=== PATIENT | female | born 1955 | race Caucasian/White ===

== ENCOUNTER 2020-05-09 16:32 | Emergency (ER) | payer MEDICAID ==
[~2020-05-09] VITALS: Ht 160 cm; Wt 87.3 kg
[~2020-05-09 16:32] MED LIST: ATOR40TA PO; BENA10TA75 PO; CIPR-230 PO; ESCI20TA45 PO; METH-360 PO; METR-159 PO; ONDA4TAB12 PO; OXYB15TA19 PO; PANT-47 PO
[2020-05-09 16:36] VITALS: BP 123/54
[2020-05-09] MEDS ORDERED: orphenadrine citrate 60mg/2ml inj. IM ONE (17:30)
[2020-05-09] MEDS ORDERED: ketorolac tromethamine 15mg/ml inj. IM ONE (17:30)
[2020-05-09] MEDS ORDERED: ORPH100T2 PO (17:45)
== END 2020-05-09 18:19 | disposition home or self-care (01) ==
LOC: ER 16:33
DX: M54.42 Lumbago with sciatica, left side (principal); M54.41 Lumbago with sciatica, right side; G89.29 Other chronic pain; Z60.2 Problems related to living alone; Z79.899 Other long term (current) drug therapy; Z88.1 Allergy status to other antibiotic agents; Z88.6 Allergy status to analgesic agent
CPT/HCPCS: 96372; 99284; J1885; J2360

== ENCOUNTER 2021-01-06 12:39 | Inpatient (IN) | payer MEDICAID ==
[~2021-01-06] VITALS: Ht 160 cm; Wt 86.4 kg
[~2021-01-06 12:39] MED LIST changes: +CIPR-202 PO; -CIPR-230 PO; +ESCI20TA39 PO; -ESCI20TA45 PO; +ORPH100T2 PO
[2021-01-06] MEDS ORDERED: normal saline 1000ML IV soln IVB ONE (12:45)
[2021-01-06 13:02] LABS: BASOPHILS # (AUTO) 0.1 X10'3 (0-0.2); BASOPHILS % (AUTO) 0.5 % (0-1); EOSINOPHILS % (AUTO) 0 % (0-6); HEMOGLOBIN 8.5 g/dl (12.0-16.0); LYMPHOCYTES # (AUTO) 0.7 X10'3 (1.1-4.8); LYMPHOCYTES % (AUTO) 6.4 % (21-51); MEAN CORPUSCULAR HEMOGLOBIN 20.8 PG (27.0-31.0); MEAN CORPUSCULAR HGB CONC 29.3 g/dL (33.0-36.5); MEAN PLATELET VOLUME 8.3 FL (7.4-10.4); MONOCYTES # (AUTO) 0.7 X10'3 (0-0.9); MONOCYTES % (AUTO) 6.2 % (2-12); NEUTROPHILS # (AUTO) 9.6 X10'3 (1.8-7.7); NEUTROPHILS % (AUTO) 86.9 % (42-75); PLATELET COUNT 294 X10'3 (140-440); RED BLOOD COUNT 4.09 X10'6 (4.20-5.60); RED CELL DISTRIBUTION WIDTH 19.9 % (11.5-14.5); WHITE BLOOD COUNT 11.1 X10'3 (4.5-11.0)
[2021-01-06 13:14] LABS: ALANINE AMINOTRANSFERASE 30 U/L (12-78); ALBUMIN 3.8 G/DL (3.4-5.0); ALBUMIN/GLOBULIN RATIO 1.2 (1.1-1.5); ALKALINE PHOSPHATASE 80 IU/L (46-116); ANION GAP 8 (8-16); ASPARTATE AMINO TRANSFERASE 36 U/L (10-37); BILIRUBIN,TOTAL 0.4 MG/DL (0.1-1.0); BLOOD UREA NITROGEN 14 MG/DL (7-18); BUN/CREATININE RATIO 21.2 (6.6-38.0); CALCIUM 9.2 MG/DL (8.5-10.1); CHLORIDE 104 MMOL/L (99-107); CREATININE 0.66 MG/DL (0.40-0.90); GLUCOSE 144 MG/DL (70-104); POTASSIUM 4.1 MMOL/L (3.5-5.1); SODIUM 139 MMOL/L (135-145); TOTAL CARBON DIOXIDE 27.4 MMOL/L (24-32); TOTAL PROTEIN 6.9 G/DL (6.4-8.2); eGFR 90 ML/MIN
[2021-01-06 13:25] LABS: CREATINE KINASE 1135 U/L (26-192)
[2021-01-06 13:47] LABS: ANISOCYTOSIS 2+; HYPOCHROMASIA 1+; MICROCYTOSIS 1+; PLATELET ESTIMATE NORMAL
[2021-01-06 13:48] LABS: POIKILOCYTOSIS FEW; POLYCHROMASIA FEW
--- NOTE | 2021-01-06 14:12 | NUR ---
Maureen (coordinates her care) [phone] Addendum: 01/06/21 at 1524 by MANUEL Maureen is her independent home and family living professor. Sometimes gives her rides, helps with groceries etc. This is only Friday-Friday and they usually help her with 2 appointments a week.
[2021-01-06 14:27] LABS: CLARITY,URINE CLEAR (Clear); COLOR,URINE YELLOW (Yellow); GLUCOSE, URINE NEGATIVE (Neg); KETONES,URINE TRACE mg/dl (Neg); LEUKOCYTE ESTERASE ,URINE NEGATIVE (Neg); NITRITES, URINE NEGATIVE (Neg); OCCULT BLOOD,URINE NEGATIVE (Neg); PH,URINE 5.5 (4.8-8.0); PROTEIN,URINE NEGATIVE (Neg); UROBILINOGEN,URINE 0.2 E.U/dL (0.2-1.0)
[2021-01-06 14:28] LABS: UA COLLECTION TYPE STRAIGHT CATH
--- NOTE | 2021-01-06 14:46 | NUR ---
Ed ([employer] worker) [phone]
[2021-01-06] MEDS ORDERED: GABA600T13 PO (15:33)
[2021-01-06] MEDS ORDERED: ATOR40TA72 PO (15:33)
[2021-01-06] MEDS ORDERED: BUPR-317 PO (15:33)
[2021-01-06] MEDS ORDERED: LEVO50TA8 PO (15:33)
[2021-01-06] MEDS ORDERED: TROS60CA3 PO (15:33)
[2021-01-06] MEDS ORDERED: ALBUTEROL (15:35)
[2021-01-06] MEDS ORDERED: CHOL20003 PO (15:35)
[2021-01-06] MEDS ORDERED: TRIA454O TOP (15:35)
[2021-01-06] MEDS ORDERED: GLIM2TAB6 PO (15:35)
--- NOTE | 2021-01-06 15:38 | NUR ---
Patient was Ax2 to the side of the bed. Able to stand on her legs but was very unsteady with any attempt to move. Patient was helped back to bed. Dr. Potts notified.
[2021-01-06] MEDS ORDERED: mag hydrox/Alum hydrox/simeth 30ml oral suspension PO PRN (15:55)
[2021-01-06] MEDS ORDERED: glucagon, human recombinant 1mg kit SUBCUT PRN (15:55)
[2021-01-06] MEDS ORDERED: morphine 2 MG/ML inj. syringe IV PRN ×2 (15:55)
[2021-01-06] MEDS ORDERED: acetaminophen 325mg tablet PO PRN (15:55)
[2021-01-06] MEDS ORDERED: MESSAGE TO PHARMACY PO ONE (15:55)
[2021-01-06] MEDS ORDERED: insulin Lispro (HumaLOG) vial - multi-dose SQ SCH (15:55)
[2021-01-06] MEDS ORDERED: dextrose ORAL solution 15 GM/59 ML bottle PO PRN ×2 (15:55)
[2021-01-06] MEDS ORDERED: magnesium hydroxide 30ml (MOM) UD suspension PO PRN (15:55)
[2021-01-06] MEDS ORDERED: dextrose 50%-water 50ml dispensing syringe IV PRN ×2 (15:55)
[2021-01-06] MEDS ORDERED: ondansetron/PF 4mg/2ml inj IV PRN (15:55)
[2021-01-06] MEDS: normal saline 1000ml 1,000 ML IV SCH (16:23)
[2021-01-06 16:26] LABS: HEMOGLOBIN A1C 6.6 % (4.5-6.2)
[2021-01-06 18:00] VITALS: BP 152/58
[2021-01-06 18:01] VITALS: BP 151/65
--- NOTE | 2021-01-06 19:19 | NUR ---
patient received a late dinner
[2021-01-06] MEDS: gabapentin 300mg capsule PO SCH (19:37)
[2021-01-06] MEDS: docusate sod 100mg capsule PO SCH (19:37)
[2021-01-06] MEDS: pantoprazole 40mg Tablet.DR PO SCH (19:37)
[2021-01-06] MEDS: cyclobenzaprine 10mg tablet PO SCH (19:37)
[2021-01-06 20:00] VITALS: BP 145/69
[2021-01-06 20:02] VITALS: BP 171/84
[2021-01-06 20:04] VITALS: BP 167/92
--- NOTE | 2021-01-06 20:51 | NUR ---
attempted orthostatic bps , with help from a chief nursing officer. patients legs did give out while standing , however just sat into the bed and was helped back into lying position. per patient , she never felt dizzy at any time during the task
[2021-01-06] MEDS: insulin glargine (Lantus) pen - multi-dose SQ SCH (21:00)
[2021-01-06] MEDS: atorvastatin 20mg tablet PO SCH (21:09)
[2021-01-06 22:00] VITALS: BP 123/65
[2021-01-07] MEDS: normal saline 1000ml 1,000 ML IV SCH ×3 (01:55→21:55)
[2021-01-07 02:00] VITALS: BP 141/68
--- NOTE | 2021-01-07 06:05 | NUR ---
Patient in room MED 309. I have received report from SCARLET Hill and had the opportunity to ask questions and assume patient care.
[2021-01-07 06:30] VITALS: BP 143/69
[2021-01-07] MEDS: HYDROcodone/acetaminophen 10/325mg tab PO PRN ×2 (06:51→17:54)
[2021-01-07 07:12] LABS: BASOPHILS # (AUTO) 0.1 X10'3 (0-0.2); BASOPHILS % (AUTO) 1.1 % (0-1); EOSINOPHILS # (AUTO) 0.1 X10'3 (0-0.9); EOSINOPHILS % (AUTO) 1.1 % (0-6); HEMATOCRIT 26.8 % (35.0-45.0); LYMPHOCYTES # (AUTO) 1.6 X10'3 (1.1-4.8); LYMPHOCYTES % (AUTO) 24.2 % (21-51); MEAN CORPUSCULAR HEMOGLOBIN 21.3 PG (27.0-31.0); MEAN CORPUSCULAR HGB CONC 29.8 g/dL (33.0-36.5); MEAN CORPUSCULAR VOLUME 71.4 FL (78-98); MEAN PLATELET VOLUME 8.5 FL (7.4-10.4); MONOCYTES # (AUTO) 0.5 X10'3 (0-0.9); MONOCYTES % (AUTO) 7.5 % (2-12); NEUTROPHILS # (AUTO) 4.4 X10'3 (1.8-7.7); NEUTROPHILS % (AUTO) 66.1 % (42-75); PLATELET COUNT 249 X10'3 (140-440); RED BLOOD COUNT 3.75 X10'6 (4.20-5.60); WHITE BLOOD COUNT 6.6 X10'3 (4.5-11.0)
[2021-01-07 07:38] LABS: ANION GAP 7 (8-16); BLOOD UREA NITROGEN 10 MG/DL (7-18); BUN/CREATININE RATIO 20.4 (6.6-38.0); CHLORIDE 108 MMOL/L (99-107); CREATININE 0.49 MG/DL (0.40-0.90); GLUCOSE 104 MG/DL (70-104); POTASSIUM 3.7 MMOL/L (3.5-5.1); SODIUM 143 MMOL/L (135-145); TOTAL CARBON DIOXIDE 27.7 MMOL/L (24-32)
[2021-01-07 07:39] LABS: ALBUMIN 3.2 G/DL (3.4-5.0); CALCIUM 8.4 MG/DL (8.5-10.1); FERRITIN 6 NG/ML (8-252); eGFR > 90 ML/MIN
[2021-01-07] MEDS ORDERED: TROSPIUM CHLORIDE PO SCH (08:00)
[2021-01-07 08:17] LABS: HYPOCHROMASIA 2+; PLATELET ESTIMATE NORMAL; POLYCHROMASIA 1+
[2021-01-07 08:18] LABS: ANISOCYTOSIS 2+; ELLIPTOCYTES FEW; MICROCYTOSIS 1+; STOMATOCYTES FEW; TEAR DROP CELLS FEW
[2021-01-07] MEDS: docusate sod 100mg capsule PO SCH ×2 (08:45→19:43)
[2021-01-07] MEDS: gabapentin 300mg capsule PO SCH ×2 (08:45→19:42)
[2021-01-07] MEDS: levoTHYROXINE 25mcg tablet PO SCH (08:45)
[2021-01-07] MEDS: cyclobenzaprine 10mg tablet PO SCH ×2 (08:45→19:43)
[2021-01-07] MEDS: pantoprazole 40mg Tablet.DR PO SCH ×2 (08:45→19:43)
[2021-01-07] MEDS: acetaminophen 325mg tablet PO PRN (08:46)
[2021-01-07] MEDS: buPROPion SR 150mg tablet PO SCH (08:47)
[2021-01-07] MEDS: cholecalciferol (vitamin D3) 1,000 unit (25mcg) tablet PO SCH (08:47)
[2021-01-07] MEDS: ESCITALOPRAM OXALATE 5 MG TABLET PO SCH (08:47)
[2021-01-07] MEDS: oxybutynin 5mg tablet PO SCH ×2 (08:47→19:43)
[2021-01-07] MEDS: enoxaparin 40mg/0.4ml syringe SUBCUT SCH (08:48)
[2021-01-07 10:14] LABS: % IRON SATURATION 8 % (11-46); IRON 29 UG/DL (49-151); TOTAL IRON BINDING CAPACITY 366 UG/DL (259-388)
[2021-01-07 11:00] VITALS: BP_SYST 111; BP_SYST 114; BP_SYST 123; BP_DIAS 42; BP_DIAS 60; BP_DIAS 63
[2021-01-07 15:00] VITALS: BP 127/55
[2021-01-07 18:00] VITALS: BP 123/51
--- NOTE | 2021-01-07 18:05 | NUR ---
Problems reprioritized. Patient report given, questions answered & plan of care reviewed with SCARLET Chiang.
[2021-01-07] MEDS: atorvastatin 20mg tablet PO SCH (21:00)
[2021-01-07] MEDS: insulin glargine (Lantus) pen - multi-dose SQ SCH (21:15)
[2021-01-07 22:00] VITALS: BP 138/63
[2021-01-08 02:00] VITALS: BP 141/60
[2021-01-08] MEDS: HYDROcodone/acetaminophen 10/325mg tab PO PRN (02:07)
[2021-01-08 05:56] LABS: HEMOGLOBIN 7.3 g/dl (12.0-16.0)
[2021-01-08 05:58] LABS: BASOPHILS # (AUTO) 0.1 X10'3 (0-0.2); BASOPHILS % (AUTO) 1.1 % (0-1); EOSINOPHILS # (AUTO) 0.1 X10'3 (0-0.9); EOSINOPHILS % (AUTO) 1.7 % (0-6); HEMATOCRIT 24.8 % (35.0-45.0); LYMPHOCYTES # (AUTO) 1.7 X10'3 (1.1-4.8); LYMPHOCYTES % (AUTO) 28.5 % (21-51); MEAN CORPUSCULAR HEMOGLOBIN 21.1 PG (27.0-31.0); MEAN CORPUSCULAR HGB CONC 29.4 g/dL (33.0-36.5); MEAN CORPUSCULAR VOLUME 71.8 FL (78-98); MEAN PLATELET VOLUME 8.5 FL (7.4-10.4); MONOCYTES # (AUTO) 0.4 X10'3 (0-0.9); NEUTROPHILS # (AUTO) 3.8 X10'3 (1.8-7.7); NEUTROPHILS % (AUTO) 61.7 % (42-75); PLATELET COUNT 222 X10'3 (140-440); RED BLOOD COUNT 3.46 X10'6 (4.20-5.60); RED CELL DISTRIBUTION WIDTH 20.8 % (11.5-14.5); WHITE BLOOD COUNT 6.1 X10'3 (4.5-11.0)
[2021-01-08 06:00] VITALS: BP 138/72
[2021-01-08 06:03] LABS: ALBUMIN 2.7 G/DL (3.4-5.0); ANION GAP 7 (8-16); CALCIUM 7.9 MG/DL (8.5-10.1); CHLORIDE 105 MMOL/L (99-107); CREATININE 0.49 MG/DL (0.40-0.90); GLUCOSE 138 MG/DL (70-104); SODIUM 139 MMOL/L (135-145); TOTAL CARBON DIOXIDE 27.5 MMOL/L (24-32); eGFR > 90 ML/MIN
--- NOTE | 2021-01-08 06:10 | NUR ---
Patient in room MED 309. I have received report from SCARLET Chiang and had the opportunity to ask questions and assume patient care.
[2021-01-08 06:15] LABS: BLOOD UREA NITROGEN 9 MG/DL (7-18); BUN/CREATININE RATIO 18.4 (6.6-38.0)
--- NOTE | 2021-01-08 06:37 | NUR ---
Problems reprioritized. Patient report given, questions answered & plan of care reviewed with JOSUE. Addendum: 01/08/21 at 0637 by Douglas Pruitt RN Amended: Links added.
[2021-01-08 06:45] LABS: PLATELET ESTIMATE NORMAL
[2021-01-08 06:46] LABS: ANISOCYTOSIS 3+; LARGE PLATELETS FEW; MICROCYTOSIS 1+; POLYCHROMASIA FEW; TEAR DROP CELLS FEW
[2021-01-08] MEDS: enoxaparin 40mg/0.4ml syringe SUBCUT SCH (08:32)
[2021-01-08] MEDS: levoTHYROXINE 25mcg tablet PO SCH (08:33)
[2021-01-08] MEDS: cholecalciferol (vitamin D3) 1,000 unit (25mcg) tablet PO SCH (08:33)
[2021-01-08] MEDS: gabapentin 300mg capsule PO SCH ×2 (08:33→21:16)
[2021-01-08] MEDS: ESCITALOPRAM OXALATE 5 MG TABLET PO SCH (08:33)
[2021-01-08] MEDS: HYDROcodone/acetaminophen 5mg/325mg tablet PO PRN (08:34)
[2021-01-08] MEDS: buPROPion SR 150mg tablet PO SCH (08:34)
[2021-01-08] MEDS: oxybutynin 5mg tablet PO SCH ×2 (08:34→21:16)
[2021-01-08] MEDS: docusate sod 100mg capsule PO SCH ×2 (08:34→21:16)
[2021-01-08] MEDS: pantoprazole 40mg Tablet.DR PO SCH ×2 (08:34→21:17)
[2021-01-08] MEDS: normal saline 1000ml 1,000 ML IV SCH ×2 (08:35→19:22)
[2021-01-08 10:00] VITALS: BP 132/74
[2021-01-08] MEDS: cyclobenzaprine 10mg tablet PO SCH ×2 (12:39→21:16)
[2021-01-08] MEDS: acetaminophen 325mg tablet PO PRN ×2 (12:39→19:13)
[2021-01-08 14:00] VITALS: BP 127/64
--- NOTE | 2021-01-08 18:46 | NUR ---
Received orders from MD Slime ceja to transfer to med surg
--- NOTE | 2021-01-08 18:47 | NUR ---
Problems reprioritized. Patient report given, questions answered & plan of care reviewed with SCARLET Bruner.
[2021-01-08 19:30] VITALS: BP 169/81
[2021-01-08] MEDS: insulin glargine (Lantus) pen - multi-dose SQ SCH (21:00)
[2021-01-08] MEDS: atorvastatin 20mg tablet PO SCH (21:16)
--- NOTE | 2021-01-08 21:46 | NUR ---
pt resting on side. left leg spasms, tried heat pack and gave flexaril as ordered
[2021-01-09] VITALS (7 sets, daily range): BP systolic 132–181; BP diastolic 64–81
[2021-01-09] MEDS: HYDROcodone/acetaminophen 5mg/325mg tablet PO PRN ×2 (04:23→15:55)
[2021-01-09] MEDS: normal saline 1000ml 1,000 ML IV SCH ×2 (05:22→08:35)
[2021-01-09 06:14] LABS: BASOPHILS # (AUTO) 0.1 X10'3 (0-0.2); BASOPHILS % (AUTO) 1.1 % (0-1); EOSINOPHILS # (AUTO) 0.1 X10'3 (0-0.9); HEMATOCRIT 24.2 % (35.0-45.0); HEMOGLOBIN 7.2 g/dl (12.0-16.0); LYMPHOCYTES # (AUTO) 1.5 X10'3 (1.1-4.8); LYMPHOCYTES % (AUTO) 26.2 % (21-51); MEAN CORPUSCULAR HEMOGLOBIN 21.3 PG (27.0-31.0); MEAN CORPUSCULAR HGB CONC 29.7 g/dL (33.0-36.5); MEAN CORPUSCULAR VOLUME 71.6 FL (78-98); MEAN PLATELET VOLUME 8.9 FL (7.4-10.4); MONOCYTES # (AUTO) 0.5 X10'3 (0-0.9); NEUTROPHILS # (AUTO) 3.4 X10'3 (1.8-7.7); NEUTROPHILS % (AUTO) 61.7 % (42-75); PLATELET COUNT 213 X10'3 (140-440); RED BLOOD COUNT 3.38 X10'6 (4.20-5.60); RED CELL DISTRIBUTION WIDTH 20.2 % (11.5-14.5); WHITE BLOOD COUNT 5.6 X10'3 (4.5-11.0)
[2021-01-09 06:24] LABS: ALBUMIN 2.6 G/DL (3.4-5.0); ANION GAP 6 (8-16); BLOOD UREA NITROGEN 5 MG/DL (7-18); BUN/CREATININE RATIO 10.6 (6.6-38.0); CALCIUM 8.2 MG/DL (8.5-10.1); CHLORIDE 106 MMOL/L (99-107); CREATININE 0.47 MG/DL (0.40-0.90); GLUCOSE 135 MG/DL (70-104); POTASSIUM 3.6 MMOL/L (3.5-5.1); SODIUM 142 MMOL/L (135-145); TOTAL CARBON DIOXIDE 30.5 MMOL/L (24-32); eGFR > 90 ML/MIN
--- NOTE | 2021-01-09 06:25 | NUR ---
reported to days. noted pt resting w/o distress. turned on her side to help with oxygen - desat from norco into 60% range. immediatly improved to 95% with arousal. still need guiac stool. labs pending. noted pat has orders for transfer to med surg floor.
--- NOTE | 2021-01-09 06:46 | NUR ---
Patient in room MED 308. I have received report from Zohreh NVOAK and had the opportunity to ask questions and assume patient care.
[2021-01-09] MEDS: levoTHYROXINE 25mcg tablet PO SCH (08:16)
[2021-01-09] MEDS: buPROPion SR 150mg tablet PO SCH (08:16)
[2021-01-09] MEDS: pantoprazole 40mg Tablet.DR PO SCH ×2 (08:17→22:20)
[2021-01-09] MEDS: oxybutynin 5mg tablet PO SCH ×2 (08:17→22:19)
[2021-01-09] MEDS: gabapentin 300mg capsule PO SCH ×2 (08:17→22:20)
[2021-01-09] MEDS: docusate sod 100mg capsule PO SCH ×2 (08:17→22:18)
[2021-01-09] MEDS: cholecalciferol (vitamin D3) 1,000 unit (25mcg) tablet PO SCH (08:18)
[2021-01-09] MEDS: cyclobenzaprine 10mg tablet PO SCH ×2 (08:18→22:20)
[2021-01-09] MEDS: ESCITALOPRAM OXALATE 5 MG TABLET PO SCH (08:19)
[2021-01-09] MEDS: enoxaparin 40mg/0.4ml syringe SUBCUT SCH (08:19)
[2021-01-09] MEDS: acetaminophen 325mg tablet PO PRN ×2 (08:43→23:10)
[2021-01-09 09:24] LABS: PLATELET ESTIMATE NORMAL
[2021-01-09 09:25] LABS: ANISOCYTOSIS 3+; HYPOGRANULAR PLATELETS FEW; MICROCYTOSIS 1+; POLYCHROMASIA 1+
--- NOTE | 2021-01-09 18:00 | NUR ---
Patient in room MED 309. I have received report from SCARLET Son and had the opportunity to ask questions and assume patient care.
--- NOTE | 2021-01-09 18:14 | NUR ---
Patient in room MED 307. I have received report from Mis NOVAK and had the opportunity to ask questions and assume patient care.
[2021-01-09] MEDS: insulin glargine (Lantus) pen - multi-dose SQ SCH (21:00)
[2021-01-09] MEDS: atorvastatin 20mg tablet PO SCH (22:21)
[2021-01-09] MEDS: FERROUS SULFATE 142 MG TABLET.ER (45mg elemental) PO SCH (22:21)
[2021-01-10 02:00] VITALS: BP 165/79
[2021-01-10 06:45] LABS: ALBUMIN 2.9 G/DL (3.4-5.0); ANION GAP 5 (8-16); BASOPHILS # (AUTO) 0.1 X10'3 (0-0.2); BLOOD UREA NITROGEN 8 MG/DL (7-18); BUN/CREATININE RATIO 16.7 (6.6-38.0); CALCIUM 9.1 MG/DL (8.5-10.1); CHLORIDE 104 MMOL/L (99-107); CREATININE 0.48 MG/DL (0.40-0.90); EOSINOPHILS # (AUTO) 0.1 X10'3 (0-0.9); EOSINOPHILS % (AUTO) 2.6 % (0-6); GLUCOSE 101 MG/DL (70-104); HEMATOCRIT 25.9 % (35.0-45.0); HEMOGLOBIN 7.8 g/dl (12.0-16.0); LYMPHOCYTES # (AUTO) 1.7 X10'3 (1.1-4.8); LYMPHOCYTES % (AUTO) 29.5 % (21-51); MEAN CORPUSCULAR HEMOGLOBIN 21.3 PG (27.0-31.0); MEAN CORPUSCULAR HGB CONC 30.1 g/dL (33.0-36.5); MEAN CORPUSCULAR VOLUME 70.8 FL (78-98); MEAN PLATELET VOLUME 8.4 FL (7.4-10.4); MONOCYTES # (AUTO) 0.6 X10'3 (0-0.9); NEUTROPHILS # (AUTO) 3.3 X10'3 (1.8-7.7); NEUTROPHILS % (AUTO) 56.9 % (42-75); PLATELET COUNT 224 X10'3 (140-440); POTASSIUM 4.3 MMOL/L (3.5-5.1); RED BLOOD COUNT 3.66 X10'6 (4.20-5.60); RED CELL DISTRIBUTION WIDTH 20.2 % (11.5-14.5); SODIUM 143 MMOL/L (135-145); TOTAL CARBON DIOXIDE 33.8 MMOL/L (24-32); WHITE BLOOD COUNT 5.8 X10'3 (4.5-11.0); eGFR > 90 ML/MIN
[2021-01-10 06:59] VITALS: BP 178/82
[2021-01-10 07:44] LABS: ANISOCYTOSIS 3+; HYPOCHROMASIA 2+; MICROCYTOSIS 1+; PLATELET ESTIMATE NORMAL
[2021-01-10 07:45] LABS: ELLIPTOCYTES FEW; SCHISTOCYTES FEW
[2021-01-10] MEDS: cyclobenzaprine 10mg tablet PO SCH ×2 (08:45→21:03)
[2021-01-10] MEDS: docusate sod 100mg capsule PO SCH ×2 (08:45→21:03)
[2021-01-10] MEDS: levoTHYROXINE 25mcg tablet PO SCH (08:45)
[2021-01-10] MEDS: buPROPion SR 150mg tablet PO SCH (08:45)
[2021-01-10] MEDS: pantoprazole 40mg Tablet.DR PO SCH ×2 (08:45→21:05)
[2021-01-10] MEDS: oxybutynin 5mg tablet PO SCH ×2 (08:46→21:04)
[2021-01-10] MEDS: lisinopril 5mg tablet PO SCH ×2 (08:46→21:05)
[2021-01-10] MEDS: cholecalciferol (vitamin D3) 1,000 unit (25mcg) tablet PO SCH (08:46)
[2021-01-10] MEDS: gabapentin 300mg capsule PO SCH ×2 (08:47→21:04)
[2021-01-10] MEDS: FERROUS SULFATE 142 MG TABLET.ER (45mg elemental) PO SCH ×2 (08:47→21:05)
[2021-01-10] MEDS: ESCITALOPRAM OXALATE 5 MG TABLET PO SCH (08:47)
[2021-01-10] MEDS: enoxaparin 40mg/0.4ml syringe SUBCUT SCH (08:59)
[2021-01-10] MEDS: acetaminophen 325mg tablet PO PRN ×2 (11:12→19:53)
[2021-01-10 12:00] VITALS: BP 145/67
--- NOTE | 2021-01-10 15:30 | NUR ---
REPORT PHONED TO SCARLET DURHAM ON ORTHO. TRANSFERRED WITH ALL BELONGINGS ,VIA BED ,TO ROOM [facility] [place] Addendum: 01/10/21 at 1746 by Rosalba Morton RN Amended: Links added.
[2021-01-10 18:00] VITALS: BP 155/72
--- NOTE | 2021-01-10 18:22 | NUR ---
Problems reprioritized. Patient report given, questions answered & plan of care reviewed with Della NOVAK.
--- NOTE | 2021-01-10 18:45 | NUR ---
Patient in room ORTHO 4012. I have received report from Hilary NOVAK and had the opportunity to ask questions and assume patient care.
[2021-01-10] MEDS: insulin glargine (Lantus) pen - multi-dose SQ SCH (20:55)
[2021-01-10] MEDS: atorvastatin 20mg tablet PO SCH (21:04)
[2021-01-10 22:00] VITALS: BP 143/101
--- NOTE | 2021-01-11 06:42 | NUR ---
Problems reprioritized. Patient report given, questions answered & plan of care reviewed with Chiara NOVAK.
[2021-01-11 06:45] LABS: BASOPHILS # (AUTO) 0.1 X10'3 (0-0.2); BASOPHILS % (AUTO) 1.4 % (0-1); EOSINOPHILS # (AUTO) 0.2 X10'3 (0-0.9); EOSINOPHILS % (AUTO) 3.4 % (0-6); HEMATOCRIT 27.3 % (35.0-45.0); HEMOGLOBIN 8.2 g/dl (12.0-16.0); LYMPHOCYTES # (AUTO) 1.4 X10'3 (1.1-4.8); LYMPHOCYTES % (AUTO) 25.3 % (21-51); MEAN CORPUSCULAR HEMOGLOBIN 21.5 PG (27.0-31.0); MEAN CORPUSCULAR VOLUME 71.7 FL (78-98); MEAN PLATELET VOLUME 8.2 FL (7.4-10.4); MONOCYTES # (AUTO) 0.6 X10'3 (0-0.9); MONOCYTES % (AUTO) 10.3 % (2-12); NEUTROPHILS # (AUTO) 3.4 X10'3 (1.8-7.7); NEUTROPHILS % (AUTO) 59.6 % (42-75); PLATELET COUNT 240 X10'3 (140-440); RED CELL DISTRIBUTION WIDTH 20.4 % (11.5-14.5); WHITE BLOOD COUNT 5.6 X10'3 (4.5-11.0)
[2021-01-11 06:54] LABS: ANION GAP 6 (8-16); BLOOD UREA NITROGEN 10 MG/DL (7-18); BUN/CREATININE RATIO 19.2 (6.6-38.0); CALCIUM 9.4 MG/DL (8.5-10.1); CHLORIDE 103 MMOL/L (99-107); CREATININE 0.52 MG/DL (0.40-0.90); GLUCOSE 112 MG/DL (70-104); POTASSIUM 4.2 MMOL/L (3.5-5.1); SODIUM 142 MMOL/L (135-145); TOTAL CARBON DIOXIDE 33.1 MMOL/L (24-32); eGFR > 90 ML/MIN
[2021-01-11] MEDS: oxybutynin 5mg tablet PO SCH ×2 (07:46→19:48)
[2021-01-11] MEDS: docusate sod 100mg capsule PO SCH ×2 (07:46→19:48)
[2021-01-11] MEDS: cyclobenzaprine 10mg tablet PO SCH ×2 (07:46→19:48)
[2021-01-11] MEDS: gabapentin 300mg capsule PO SCH ×2 (07:47→19:48)
[2021-01-11] MEDS: ESCITALOPRAM OXALATE 5 MG TABLET PO SCH (07:47)
[2021-01-11] MEDS: levoTHYROXINE 25mcg tablet PO SCH (07:47)
[2021-01-11] MEDS: cholecalciferol (vitamin D3) 1,000 unit (25mcg) tablet PO SCH (07:48)
[2021-01-11] MEDS: lisinopril 5mg tablet PO SCH ×2 (07:58→19:54)
[2021-01-11] MEDS: enoxaparin 40mg/0.4ml syringe SUBCUT SCH (07:59)
[2021-01-11] MEDS: buPROPion SR 150mg tablet PO SCH (08:00)
[2021-01-11] MEDS: FERROUS SULFATE 142 MG TABLET.ER (45mg elemental) PO SCH ×2 (08:00→19:48)
[2021-01-11] MEDS: pantoprazole 40mg Tablet.DR PO SCH ×2 (08:13→19:54)
--- NOTE | 2021-01-11 08:45 | NUR ---
did not give the wellbutrin or the iron as they are not crushable. Will hold and wait to hear from MD and pharmacist
[2021-01-11 09:11] LABS: PLATELET ESTIMATE NORMAL
[2021-01-11 09:12] LABS: ANISOCYTOSIS 3+; HYPOCHROMASIA 2+; LARGE PLATELETS FEW; MICROCYTOSIS 1+
[2021-01-11 09:13] LABS: ELLIPTOCYTES FEW; POLYCHROMASIA 1+
[2021-01-11 10:00] VITALS: BP 141/63
--- NOTE | 2021-01-11 10:48 | NUR ---
PAGER ID: [phone] MESSAGE: Chiara [phone] m[address] Heather Serge- her Wellbutrin is SR, which I cannot crush. pt only takes crushed meds. We have an instant release form here. Do you want to switch? or are you ok with me crushing the SR. She chews it at home
[2021-01-11 12:01] LABS: OCCULT BLOOD STOOL NEGATIVE (Neg)
--- NOTE | 2021-01-11 12:18 | NUR ---
DM Consult: Pt A1C less than 7 and not appropriate for DM ed at this time. Pt admit DX generalized weakness, hypothyroidism, and iron-deficiency anemia per MD note. Pt PO 75-100% avg carb controlled meals meeting needs. LBM 4/15 AM per EMR; receiving routine colace as well as iron. Will continue to monitor. Rec: 1. continue carb controlled diet 2. routine bowel care 3. scaled wt this admit Addendum: 01/11/21 at [address] Amended: Links added.
--- NOTE | 2021-01-11 13:03 | NUR ---
PATIENT LEFT FOR MRI AT 12:45 PT CURRENTLY NOT IN ROOM Addendum: 01/11/21 at 1304 by Cheyenne FELDMAN Amended: Links added.
[2021-01-11] MEDS: HYDROcodone/acetaminophen 5mg/325mg tablet PO PRN (15:49)
[2021-01-11 18:00] VITALS: BP 149/72
--- NOTE | 2021-01-11 18:27 | NUR ---
Problems reprioritized. Patient report given, questions answered & plan of care reviewed with Chiara NOVAK.
[2021-01-11] MEDS: acetaminophen 325mg tablet PO PRN (19:12)
--- NOTE | 2021-01-11 19:31 | NUR ---
Patient in room ORTHO 4012. I have received report from SCARLET Guadarrama and had the opportunity to ask questions and assume patient care.
[2021-01-11] MEDS: atorvastatin 20mg tablet PO SCH (19:48)
[2021-01-11] MEDS: insulin glargine (Lantus) pen - multi-dose SQ SCH (21:00)
[2021-01-11 22:00] VITALS: BP 123/41
[2021-01-12] MEDS: HYDROcodone/acetaminophen 10/325mg tab PO PRN ×2 (02:39→22:51)
[2021-01-12 06:00] VITALS: BP 114/60
--- NOTE | 2021-01-12 06:44 | NUR ---
Problems reprioritized. Patient report given, questions answered & plan of care reviewed with SCARLET Guadarrama.
[2021-01-12] MEDS: lisinopril 5mg tablet PO SCH ×2 (08:00→20:25)
[2021-01-12] MEDS: docusate sod 100mg capsule PO SCH ×2 (08:18→20:25)
[2021-01-12] MEDS: oxybutynin 5mg tablet PO SCH ×2 (08:18→20:25)
[2021-01-12] MEDS: buPROPion SR 150mg tablet PO SCH (08:23)
[2021-01-12] MEDS: gabapentin 300mg capsule PO SCH ×2 (08:24→20:26)
[2021-01-12] MEDS: levoTHYROXINE 25mcg tablet PO SCH (08:24)
[2021-01-12] MEDS: pantoprazole 40mg Tablet.DR PO SCH ×2 (08:24→20:26)
[2021-01-12] MEDS: ESCITALOPRAM OXALATE 5 MG TABLET PO SCH (08:24)
[2021-01-12] MEDS: FERROUS SULFATE 142 MG TABLET.ER (45mg elemental) PO SCH ×2 (08:24→20:25)
[2021-01-12] MEDS: cyclobenzaprine 10mg tablet PO SCH ×2 (08:24→20:26)
[2021-01-12] MEDS: cholecalciferol (vitamin D3) 1,000 unit (25mcg) tablet PO SCH (08:24)
[2021-01-12] MEDS: enoxaparin 40mg/0.4ml syringe SUBCUT SCH (08:25)
[2021-01-12] MEDS: acetaminophen 325mg tablet PO PRN (09:08)
[2021-01-12 10:00] VITALS: BP 129/47
[2021-01-12] MEDS: HYDROcodone/acetaminophen 5mg/325mg tablet PO PRN (11:12)
[2021-01-12 18:00] VITALS: BP 128/59
--- NOTE | 2021-01-12 19:00 | NUR ---
Patient in room ORTHO 4012. I have received report from SCARLET Guadarrama and had the opportunity to ask questions and assume patient care.
[2021-01-12] MEDS: atorvastatin 20mg tablet PO SCH (20:26)
[2021-01-12] MEDS: insulin glargine (Lantus) pen - multi-dose SQ SCH (21:00)
[2021-01-12 22:00] VITALS: BP 116/57
[2021-01-13 06:00] VITALS: BP_SYST 112; BP_SYST 120; BP_DIAS 67; BP_DIAS 70
--- NOTE | 2021-01-13 06:45 | NUR ---
Problems reprioritized. Patient report given, questions answered & plan of care reviewed with SCARLET Guadarrama.
[2021-01-13] MEDS: cyclobenzaprine 10mg tablet PO SCH ×2 (09:41→20:15)
[2021-01-13] MEDS: docusate sod 100mg capsule PO SCH ×2 (09:41→20:15)
[2021-01-13] MEDS: oxybutynin 5mg tablet PO SCH ×2 (09:41→20:15)
[2021-01-13] MEDS: ESCITALOPRAM OXALATE 5 MG TABLET PO SCH (09:41)
[2021-01-13] MEDS: pantoprazole 40mg Tablet.DR PO SCH ×2 (09:42→20:15)
[2021-01-13] MEDS: gabapentin 300mg capsule PO SCH ×2 (09:42→20:15)
[2021-01-13] MEDS: FERROUS SULFATE 142 MG TABLET.ER (45mg elemental) PO SCH ×2 (09:42→20:15)
[2021-01-13] MEDS: levoTHYROXINE 25mcg tablet PO SCH (09:42)
[2021-01-13] MEDS: lisinopril 5mg tablet PO SCH ×2 (09:43→20:15)
[2021-01-13] MEDS: cholecalciferol (vitamin D3) 1,000 unit (25mcg) tablet PO SCH (09:43)
[2021-01-13] MEDS: buPROPion SR 150mg tablet PO SCH (09:43)
[2021-01-13] MEDS: enoxaparin 40mg/0.4ml syringe SUBCUT SCH (09:44)
[2021-01-13 10:00] VITALS: BP 148/76
--- NOTE | 2021-01-13 12:24 | NUR ---
PAGER ID: [phone] MESSAGE: Chiara [phone] in [address]- large indurated sore on R antecubital area previos IV site with white head. Very painful. I would like you to look at it. Also, please NINO pablo pt not met protocol
[2021-01-13] MEDS: HYDROcodone/acetaminophen 5mg/325mg tablet PO PRN (12:58)
[2021-01-13] MEDS: sulfamethoxazole/trimethoprim DS (800/160mg) tablet PO SCH ×2 (12:58→20:15)
[2021-01-13 18:00] VITALS: BP 121/54
--- NOTE | 2021-01-13 18:01 | NUR ---
PAGER ID: [phone] MESSAGE: Chiara [phone]- is it ok to leave out IV for Angélica Calvillo? Hard stick
[2021-01-13] MEDS: acetaminophen 325mg tablet PO PRN (19:09)
[2021-01-13] MEDS: atorvastatin 20mg tablet PO SCH (20:15)
[2021-01-13] MEDS: insulin glargine (Lantus) pen - multi-dose SQ SCH (21:00)
[2021-01-13 22:00] VITALS: BP 110/47
[2021-01-14] MEDS: HYDROcodone/acetaminophen 10/325mg tab PO PRN ×3 (03:28→19:36)
[2021-01-14 06:00] VITALS: BP 106/55
--- NOTE | 2021-01-14 07:03 | NUR ---
Problems reprioritized. Patient report given, questions answered & plan of care reviewed with SCARLET Vela.
[2021-01-14] MEDS: docusate sod 100mg capsule PO SCH ×2 (08:37→19:44)
[2021-01-14] MEDS: FERROUS SULFATE 142 MG TABLET.ER (45mg elemental) PO SCH ×2 (08:37→19:45)
[2021-01-14] MEDS: ESCITALOPRAM OXALATE 5 MG TABLET PO SCH (08:47)
[2021-01-14] MEDS: sulfamethoxazole/trimethoprim DS (800/160mg) tablet PO SCH ×2 (08:47→19:44)
[2021-01-14] MEDS: pantoprazole 40mg Tablet.DR PO SCH ×2 (08:48→19:45)
[2021-01-14] MEDS: cyclobenzaprine 10mg tablet PO SCH ×2 (08:48→19:44)
[2021-01-14] MEDS: gabapentin 300mg capsule PO SCH ×2 (08:48→19:45)
[2021-01-14] MEDS: oxybutynin 5mg tablet PO SCH ×2 (08:48→19:44)
[2021-01-14] MEDS: cholecalciferol (vitamin D3) 1,000 unit (25mcg) tablet PO SCH (08:49)
[2021-01-14] MEDS: buPROPion SR 150mg tablet PO SCH (08:50)
[2021-01-14] MEDS: levoTHYROXINE 25mcg tablet PO SCH (08:50)
[2021-01-14] MEDS: acetaminophen 325mg tablet PO PRN (08:51)
[2021-01-14] MEDS: enoxaparin 40mg/0.4ml syringe SUBCUT SCH (08:51)
[2021-01-14] MEDS: lisinopril 5mg tablet PO SCH ×2 (08:59→19:50)
[2021-01-14 10:00] VITALS: BP 130/65
[2021-01-14 18:00] VITALS: BP 138/62
[2021-01-14] MEDS: lactobacillus rhamnosus 10,000 MMU CELLS/CAPSULE PO SCH (19:44)
[2021-01-14] MEDS: insulin glargine (Lantus) pen - multi-dose SQ SCH (21:00)
[2021-01-14 22:04] VITALS: BP 106/54
[2021-01-14] MEDS: atorvastatin 20mg tablet PO SCH (22:07)
[2021-01-15] MEDS: HYDROcodone/acetaminophen 5mg/325mg tablet PO PRN (02:48)
[2021-01-15 06:00] VITALS: BP 128/65
--- NOTE | 2021-01-15 06:18 | NUR ---
Problems reprioritized. Patient report given, questions answered & plan of care reviewed with SCARLET GUZMAN.
[2021-01-15] MEDS: cholecalciferol (vitamin D3) 1,000 unit (25mcg) tablet PO SCH (08:00)
[2021-01-15] MEDS: buPROPion SR 150mg tablet PO SCH (08:49)
[2021-01-15] MEDS: acetaminophen 325mg tablet PO PRN (08:54)
[2021-01-15] MEDS: levoTHYROXINE 25mcg tablet PO SCH (08:55)
[2021-01-15] MEDS: FERROUS SULFATE 142 MG TABLET.ER (45mg elemental) PO SCH (08:57)
[2021-01-15] MEDS: sulfamethoxazole/trimethoprim DS (800/160mg) tablet PO SCH (08:58)
[2021-01-15] MEDS: pantoprazole 40mg Tablet.DR PO SCH (09:00)
[2021-01-15] MEDS: gabapentin 300mg capsule PO SCH (09:01)
[2021-01-15] MEDS: ESCITALOPRAM OXALATE 5 MG TABLET PO SCH (09:03)
[2021-01-15] MEDS: cyclobenzaprine 10mg tablet PO SCH (09:06)
[2021-01-15] MEDS: lactobacillus rhamnosus 10,000 MMU CELLS/CAPSULE PO SCH (09:07)
[2021-01-15] MEDS: oxybutynin 5mg tablet PO SCH (09:07)
[2021-01-15] MEDS: docusate sod 100mg capsule PO SCH (09:08)
[2021-01-15] MEDS: lisinopril 5mg tablet PO SCH (09:16)
[2021-01-15] MEDS: enoxaparin 40mg/0.4ml syringe SUBCUT SCH (09:20)
[2021-01-15 10:00] VITALS: BP 123/65
== END 2021-01-15 14:15 | DRG 861 ==
LOC: ER 12:40 → ED HOLD 15:51 → MED 3N 17:44 → ORTHO 4S 01-10 15:53
PROVIDERS: ADMIT Internal Medicine; ATTEND Internal Medicine
DX: R53.1 Weakness (principal); E11.65 Type 2 diabetes mellitus with hyperglycemia; E03.9 Hypothyroidism, unspecified; E78.5 Hyperlipidemia, unspecified; F17.210 Nicotine dependence, cigarettes, uncomplicated; D50.9 Iron deficiency anemia, unspecified; F32.9 Major depressive disorder, single episode, unspecified; I10 Essential (primary) hypertension; Z20.822 Contact with and (suspected) exposure to COVID-19; L03.113 Cellulitis of right upper limb; G80.9 Cerebral palsy, unspecified; G89.29 Other chronic pain; Z79.84 Long term (current) use of oral hypoglycemic drugs; Z79.899 Other long term (current) drug therapy; Z83.3 Family history of diabetes mellitus
CPT/HCPCS: 36415; 70551; 80048; 80053; 81003; 82272; 82550; 82728; 82948; 83036; 83540; 83550; 83880; 84145; 84443; 85008; 85025; 87081; 87426; 96374; 97110; 97112; 97116; 97162; 97530; 97535; 99285; G0378; J1650; J1815; J2270; J2405; J7030